=== PATIENT | female | born 1970 | race Caucasian/White ===

== ENCOUNTER 2024-02-03 13:47 | Outpatient (REF) | payer BC, SELFPAY ==
[2024-02-03 14:00] LABS: MANUAL DIFF FLAG NO
[2024-02-03 15:16] LABS: Basophils Percent Auto 0.5 % (0-2); Eosinophils Absolute Auto 0.5 X10*3/uL (0.0-0.4); Eosinophils Percent Auto 6.1 % (0-4); Hematocrit 41.9 % (37.0-47.0); Hemoglobin 14.2 g/dl (12.0-16.0); Imm Gran Abs Auto 0.02 X10*3/uL (0.00-0.03); Imm Gran Pct Auto 0.3 % (0.0-0.4); Lymphocytes Absolute Auto 1.7 X10*3/uL (1.2-4.9); Lymphocytes Percent Auto 22.9 % (20-40); Mean Corpuscular HGB Conc 33.9 g/dl (31.0-35.0); Mean Corpuscular Hemoglobin 29.9 pg (27.0-33.0); Mean Corpuscular Volume 88.2 fL (80.0-98.0); Mean Platelet Volume 10.9 fL (9.4-12.3); Monocytes Absolute Auto 0.4 X10*3/uL (0.1-1.2); Monocytes Percent Auto 5.4 % (2-11); Neutrophils Absolute Auto 4.8 x10*3/uL (2.0-8.3); Neutrophils Percent Auto 64.8 % (45-73); Platelet Count 240 X10*3/uL (160-400); Red Blood Count 4.75 X10*6/uL (4.20-5.50); Red Cell Distribution Width 12.4 % (11.0-16.0); White Blood Count 7.4 X10*3/uL (4.8-10.8)
[2024-02-03 15:57] LABS: Alanine Aminotransferase 10 U/L (0-31); Albumin Level 4.3 g/dL (3.5-5.0); Alkaline Phosphatase 64 U/L (39-117); Anion Gap 11 (12-20); Aspartate Amino Transferase 13 U/L (5-31); Bilirubin Total 0.7 mg/dL (0.0-1.0); Blood Urea Nitrogen 11 mg/dL (9-16); Calcium 9.2 mg/dL (8.4-10.2); Carbon Dioxide 26 mmol/L (22-29); Chloride 108 mmol/L (96-108); Estimated Glomerular Filt Rate > 60; Glucose Random 113 mg/dL (60-115); Sodium 141 mmol/L (135-145); Total Protein 7.5 g/dL (6.5-8.0)
[2024-02-03 16:14] LABS: Thyroid Stimulating Hormone 1.88 uIU/mL (0.32-4.0)
== END 2024-02-03 13:48 | disposition home or self-care (01) ==
LOC: HO.LAB 13:47
PROVIDERS: PCP Internal Medicine; Visit Provider Internal Medicine
DX: R42 Dizziness and giddiness (principal)
CPT/HCPCS: 36415; 80053; 84443; 85025

== ENCOUNTER 2024-02-23 14:20 | Outpatient (REF) | payer BC, SELFPAY ==
--- NOTE | ~2024-02-23 | US_ITS ---
EXAMINATION: US EXTRACRANIAL CAROTID DUPLEX, RIGHT CLINICAL INFORMATION: Right carotid bruit, dizziness COMPARISON: None available. TECHNIQUE: Real-time ultrasound and Doppler techniques (integrating B-mode 2-D vascular images, Doppler spectral analysis and color-flow Doppler imaging) were utilized to interrogate the extracranial carotid arteries, the vertebral arteries and proximal subclavian arteries, right only. The degree of stenosis is determined by criteria similar to NASCET. FINDINGS: 1. There is no significant atherosclerotic plaque seen in the bifurcation/proximal ICA region. 2. The common carotid artery PSV proximally is 135 cm/s and distally 114 cm/s. 3. The proximal internal carotid artery velocities are 96.4 cm/s systolic and 25.9 cm/s diastolic. 4. The proximal external carotid artery PSV is 142 cm/s. 5. The vertebral artery shows antegrade flow. 6. The subclavian artery waveforms are normal. US/US carotid duplex RT IMPRESSION: 1. Normal right internal carotid artery without atherosclerotic plaque or hemodynamically significant stenosis. Electronically signed by: Eliezer Barfield MD 02/24/2024 09:24 AM EDT
== END 2024-02-23 14:21 | disposition home or self-care (01) ==
LOC: HO.US 14:20
PROVIDERS: PCP Internal Medicine; Visit Provider Internal Medicine
DX: R09.89 Other specified symptoms and signs involving the circulatory and respiratory systems (principal); R42 Dizziness and giddiness
CPT/HCPCS: 93882

== ENCOUNTER 2024-11-17 13:26 | Outpatient (AMB) | payer BC, SELFPAY ==
--- NOTE | 2024-11-17 13:23 | A.OFFPC_ITS ---
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 She currently lives at home with her and son. She feels safe at home and reports she is happily and retired but is looking for part-time work. She reports she does smoke marijuana, has tried edibles with adverse effect. Denies any other drug use. Rare alcohol use. No cigarette smoking. Situational anxiety-was previously on sertraline but weaned herself from this about 6 months ago. Reports her anxiety is primarily related to work. 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 The issues themselves as well as the ongoing proceedings cause great distress. She reports this has improved as she is now retired from the position. She does have many coping mechanisms including deep breathing exercises and yoga. She had also previously been following with therapist. Obesity-BMI 30.3. Reports that she gained about 30 lb as a result of the above. She has been exercising regularly with weight training 3-4 days per week, biking, yoga, swimming. She is also been following a healthy diet, is gluten free, and has been tracking her food intake. She is currently consuming between 6798-3240 calories on a daily basis. Has not lost any weight. Osteoarthritis of the left knee-follows with [facility] and support. Concerns: None other than those mentioned above Health maintenance: Due for Pap smear Due for mammogram Due for colonoscopy ROS: General: No fevers, malaise, unintentional weight loss HEENT: No blurred vision, diplopia. No sore throat, nasal congestion, rhinorrhea, sinus pain, ear pain. No hearing loss Neck - no adenopathy Cardiovascular: No chest pain, palpitations, or leg edema Respiratory: No shortness of breath, wheezing, cough Breast: No pain, palpable lumps, nipple inversion GI: No dysphagia, odynophagia, globus sensation. No abdominal pain, nausea, vomiting, diarrhea, constipation, melena, hematochezia : No dysuria, hematuria, increased urinary frequency, decreased urinary output. EX CHEF: No abn vaginal bleeding or discharge MSK: No myalgia, back pain. see hpi Neuro: No headaches, weakness, paresthesias Psych: no depression. No AH/VH. No SI/HI. see hpi Skin: No rashes or lesions EXAM: Constitutional - Awake and Alert, No apparent distress Eyes - PERRLA, EOMI. Anicteric Ears - external ears normal, canals clear, TMs intact and pearly linares with good cone of light Nose- septum midline, nares clear, no sinus tenderness Mouth/throat- mucosa moist, tongue and uvula midline, no erythema/edema or tonsillar adenopathy. Neck-trachea midline, thyroid symmetric without palpable nodules, no adenopathy Cardiovascular - S1S2, RRR, No edema Respiratory - Normal lung expansion, Normal respiratory effort, No respiratory distress, CTA bilaterally Gastrointestinal - NT / ND; +BS; No rebound or guarding - No CVA tenderness Extremities - no calf tenderness bilaterally, no swelling Musculoskeletal - Normal inspection, normal ROM Skin - Warm/Dry, no concerning lesions Neurological - Alert & oriented x3, CN II-XII in tact, 5/5 strength BUE and BLE, 1+ patellar reflexes, sensation intact Psychological - Appropriate affect [facility] Medical History (Updated 11/17/24 @ 13:53 by MARCELLE Mcgrath) Osteoarthritis of left knee Situational anxiety Surgical History (Updated 11/17/24 @ 13:55 by MARCELLE Mcgrath) H/O umbilical hernia repair S/P inguinal hernia repair S/P ACL repair S/P arthroscopic knee surgery Family History (Updated 11/17/24 @ 13:51 by MARCELLE Mcgrath) Paternal Grandmother Breast cancer Sister Breast cancer Physical exam (Primary Care) Vital Signs: Last Vital Signs Temp 97.9 F 11/17/24 13:29 Pulse 76 07/02/25 13:29 Resp 16 11/17/24 13:29 BP 130/78 11/17/24 13:29 Pulse Ox 98 11/17/24 13:29 Oxygen Delivery Method Room Air 11/17/24 13:29 BMI result Body Mass Index 30.3 Office Procedures Cerumen Removal From which ear canal was the cerumen removed: bilateral Removal: irrigation and otoscope w/curette Notes: patient tolerated procedure well, no complications and ear canal clear [id number] Wax Removal by Spoon/Curette Coding Level of Care Code New Pt Prev Care 40-64y(77611) Diagnoses Encounter for routine history and physical examination Z00.00 Situational anxiety F41.8 CPT Codes Office Procedure - CPT: 89409-Jtx Wax Removal by Spoon/Curette ([id number]) Assessment & Plan Assessment & Plan (1) Encounter for routine history and physical examination: Code(s): Z00.00 - Encounter for general adult medical examination without abnormal findings Plan: 54-year-old female presenting for annual physical exam found to be in good general state of health. Plan as below (2) Situational anxiety: Code(s): F41.8 - Other specified anxiety disorders Category: Medical Plan: Stable overall. Can continue off of sertraline. Continue with positive coping mechanisms Plan Routine screening labs as ordered below Continue with screening mammograms, Pap smears, colonoscopies- referred Continue following for annual skin exams and use sun protection Annual eye exams and dental exams Wear seat belt in car Recommend regular exercise and healthy diet Orders: Orders Complete Blood Count Auto Diff Today Z00.00 - Encounter for general adult medical examination without abnormal findings Lipid Panel Today Z00.00 - Encounter for general adult medical examination without abnormal findings Vitamin D 25-OH Total Today Z00.00 - Encounter for general adult medical examination without abnormal findings MM tomosynthesis screening BI Today Z12.31 - Encounter for screening mammogram for malignant neoplasm of breast Basic Metabolic Panel Today Z00.00 - Encounter for general adult medical examination without abnormal findings Liver Panel Today Z00.00 - Encounter for general adult medical examination without abnormal findings TSH reflex Free T4 Today Z00.00 - Encounter for general adult medical examination without abnormal findings Referrals Gastroenterology Referral Z00.00 - Encounter for general adult medical examination without abnormal findings, Z12.11 - Encounter for screening for malignant neoplasm of colon
[2024-11-17 13:29] VITALS: BP 130/78; PULSE 76; RESP 16; TEMP 36.6; O2SAT 98; BMI 30.3
--- OUTSIDE RECORDS SUMMARY | 2024-11-17 14:03 | XMS_ITS | Data Portability ---
Author Organization [place] - [facility], [facility] - INPATIENT Address [address] [place] [address] Care Team Providers Care Archives Director Name Role Phone LACY MOFFETT Primary Care Provider Assessment Encounter Date Assessment Date Assessment LastModified by Organization Details LastModified Time 07/16/2019 07/16/2019 PROCEDURE: The patient consented to proceeding with a Monovisc injection after risks, benefits and alternatives were discussed. Under sterile conditions with the use of alcohol and Betadine prep on the superolateral portion of the right knee and ethyl chloride spray on the skin, I applied sterile ultrasound gel and utilized the [employer] to ensure accurate needle placement. Topical anesthesia was achieved by inserting 1 cc of 2% lidocaine into the subcutaneous tissues, followed by aspiration of approximately 1 cc of straw-colored fluid from the knee joint and the placement of Monovisc into the joint without incident. Ultrasound images were scanned into the patient's chart. The injection was completed without complication and a Band-Aid was applied. The patient tolerated the procedure well and was instructed to avoid strenuous activity for the next 24-48 hours and use ice, NSAIDS, or Tylenol for pain as needed. PLAN: The patient was given the usual post injection instructions, including to call the office if there is any increased pain or discomfort. All of the patient's questions were answered. We will see the patient back in 2 months to re-evaluate the knee and to assess response to the injection. Not available 07/28/2019 21:26:41 08/25/2019 08/25/2019 IMPRESSION: She has improved since last visit, which is great news, but she is not pain free. We discussed that the next logical step is for an MRI should the symptoms continue. PLAN: We are going to give it another month for continued conservative management with strengthening, range of motion, and muscle work. She is in agreement with this treatment plan. Again medially she reports no significant pain, where the majority is lateral and posterior knee. She denies any loss of range of motion. Therefore, we will continue down the conservative path and see the patient back in a month for further review. All of the patient s questions were answered. I spent a total of 25 minutes during this real-time virtual clinical interactive encounter. Greater than 70% of the time was devoted towards counseling and coordinating care, including review of records and pertinent laboratory data and studies, discussing diagnostic evaluation and workup and planned therapeutic interventions. This includes counseling regarding the patient s history. [email or web address] Not available 08/27/2019 22:32:35 03/29/2020 03/29/2020 IMPRESSION: The patient is status post NUsurface implant. Overall, she is doing quite well, which we are excited about. She has off and on symptoms of discomfort. I do believe that WERNER injections would be an option for her as they benefited her substantially in the past should there be more bad days than good days, but overall she is doing well. PLAN: I feel no need to intervene with the exception of continued strengthening, weight maintenance, and general knee health. We will see her back for further review. All of the patient's questions were answered. The patient did complete the COVID-19 screening handout and was deemed healthy to move forward with this appointment. This visit is a znem-tp-melp visit during the COVID-19 pandemic Public Health Emergency. Based on my clinical judgment, I felt that this visit could not be provided safely and appropriately via TeleHealth. Based on available information prior to presentation, the patient had a high risk of significant worsening and potential functional impairment affecting ADLs if the visit was not completed today. The patient was seen in the office after following PPE use, Workforce Safety, Patient Safety and Infection Control protocols for all services provided today in accordance with [facility] and CDC guidelines. There was additional practice expense incurred due to the Public Health Emergency. This additional expense includes but is not limited to: Additional clinical staff and medical technical publications manager time for pre-screening Time spent reviewing COVID social distancing guidelines, precautions, instructions, and signage Patient symptom checking upon arrival Application, removal, and purchasing of additional PPE Additional cleaning of exam room, equipment, supplies, as well as cleaning supplies for that purpose. Not available 04/02/2020 17:15:36 05/23/2022 05/23/2022 We reviewed the surgery in exquisite detail including the surgical videos. She did mention today that she has some numbness into the toes she states that this has been since the implant was unstable. Not from the surgery. On physical exam she demonstrates 5 out of 5 strength of FHL EHL dorsiflexion plantarflexion and just simply hyposensation to the to the toes. This is something that I do feel will continue to improve and may indeed be from pressure from swelling from the meniscus injury or the implant itself I do feel this will improve with time and physical therapy. She will initiate skilled physical therapy we will provide her a prescription for physical therapy. The diagnosis is postop removal of meniscus implant and the treatment plan is progressive range of motion strengthening soft tissue work and a gait work. We will see her back for further review in 6 weeks. We will she would like to proceed with a revision of the implant so we will institute this program for compassionate use. And seek approval certainly the ACL will be addressed at the surgery. And we will see patient back with Dr. Hair in follow-up in 4 to 6 weeks [email or web address] Not available 05/24/2022 11:43:14 Plan of Treatment Reminders Order Date Submit Date Provider Last Modified By Organization Details Last Modified Time Details Appointments None recorded. Lab None recorded. Referral physical therapist referral - dx: s/p left knee postop removal of meniscus implant-pr ogressive range of motion strengthen ing soft tissue work and a gait work Total # of Visits: prn 2022 023 [email or web address] Not available 3 12:00:11 Procedures None recorded. Surgeries orthopaedi c surgery (SURG) 2022 023 [email or web address] [facility], [address] [place] [address], [address], 3 16:26:17 Imaging None recorded. Medication Orders Monovisc 88 mg/4 mL intra-awa cular syringe 2019 020 [email or web address] [id number], [address] [place], [address], 11:17:04 Patient TargetsNo targets recorded. Patient InstructionsNo instructions recorded. Reason for Referral Physical Therapist Referral for Tear of medial meniscus of knee dx: s/p left knee postop removal of meniscus implant-progressive range of motion strengthening soft tissue work and a gait workTotal # of Visits: prn Referring Physician: Wellington Reis Physician Reserve Officer, Encounter Date: 05/23/2022 Problems Name Problem SNOMED Code Status Onset Date Resolution Date Notes Provider Name and Address Organization Details Recorded Time Knee pain Active Ceci ambriz [facility] 23:48:11 Tear of medial meniscus of knee 257523410 Active Ceci ambriz [facility] 18:49:04 Patellofemo ral syndrome of left knee 5228468555052 107 Active Ceci ambriz [facility] 18:49:04 Acute meniscal tear, lateral 620031398 Active Ceci ambriz [facility] 18:49:04 Tear of lateral meniscus of knee 838369866 Active MARCELLE LORA [address] [place] [address], [phone] [place] [address] [facility] 10:41:16 Problem Notes None recorded. Procedures Surgical History Date Name Laterality Status Provider Name and Address Organization Details Recorded Time 05/09/20 22 Orthopaedic Surgery completed Fran Elliott [facility] 05/23/2022 10:44:52 07/09/19 17 Orthopaedic Surgery completed Mariaa Mortensen [facility] 07/23/2016 13:25:25 01/24/20 16 Orthopaedic Surgery completed Tiffany Puente [facility] 01/31/2016 11:01:50 07/18/19 16 Orthopaedic Surgery completed Tiffany Puente [facility] 11/10/2015 10:35:10 05/19/19 10 Orthopaedic Surgery completed Mariaa Mortensen [facility] 05/26/2015 13:19:28 05/19/19 01 Orthopaedic Surgery completed Mariaa Mortensen MA [facility] 05/26/2015 13:19:28 05/19/18 93 Orthopaedic Surgery completed Mariaa Mortensen MA [facility] 05/26/2015 13:19:28 Imaging Results None recorded. Procedure Notes None recorded. Medical Equipment None Reported. Allergies No known drug allergies Medications Name Sig Start Date Stop Date Status Note LastModified by Organization Details LastModified Time celecoxib 200 mg capsule 07/16 completed Not Available Not Available Not Available cyclobenzap rine 10 mg tablet active Not Available Not Available Not Available amoxicillin 500 mg capsule 07/16 completed Not Available Not Available Not Available medroxyprog esterone 10 mg tablet active Not Available Not Available No t Available Depo-Medrol 40 mg/mL suspension for injection Take 2 mL by injection route. 08/21 completed Not Available Not Available Not Available azithromyci n 250 mg tablet 07/16 completed Not Available Not Available Not Available clarithromy larissa 500 mg tablet 07/16 completed Not Available Not Available Not Available sertraline 100 mg tablet TAKE 1/2 TABLET BY MOUTH ONCE A DAY active Not Available Not Available No t Available acetaminoph en 300 mg-codeine 30 mg tablet active Not Available Not Available Not Available morphine ER 30 mg tablet,exte nded release active Not Available Not Available Not Available oxycodone-a cetaminophe n 5 mg-325 mg tablet 05/10 completed Not Available Not Available Not Available sulfacetami de sodium 10 % eye drops INSTILL 2 DROPS INTO AFFECTED EYE FOUR TIMES A DAY active Not Available Not Available No t Available omeprazole 20 mg capsule,del ayed release 07/16 completed Not Available Not Available Not Available Iophen C-NR 10 mg-100 mg/5 mL oral liquid active Not Available Not Available Not Available ibuprofen 600 mg tablet active Not Available Not Available Not Available methylpredn isolone 4 mg tablets in a dose pack TAKE 6 TABLETS ON DAY 1 DIRECTED ON PACKAGE AND DECREASE BY 1 TAB EACH DAY FOR A TOTAL OF 6 DAYS active Not Available Not Available No t Available ketoconazol e 2 % topical cream active Not Available Not Available Not Available indomethaci n ER 75 mg capsule,ext ended release TAKE ONE CAPSULE BY MOUTH EVERY DAY FOR 6 WEEKS THEN NEEDED FOR PAIN 07/16 completed Not Available Not Available Not Available sertraline 50 mg tablet TAKE 1 TABLET BY MOUTH EVERY DAY IN THE MORNING active Not Available Not Available No t Available amoxicillin 875 mg-potassiu m clavulanate 125 mg tablet TAKE 1 TABLET BY MOUTH EVERY 12 HOURS FOR 5 DAYS 07/16 completed Not Available Not Available Not Available oxycodone 5 mg tablet TAKE 1-2 TABLETS BY MOUTH EVERY 4-6 HOURS NEEDED 05/23 completed Not Available Not Available Not Available Sprintec (28) 0.25 mg-0.035 mg tablet TAKE ONE TABLET BY MOUTH TWICE A DAY WITH FOOD FOR 7 DAYS, THEN ONE PER DAY THEREAFTE R. 07/16 completed Not Available Not Available Not Available doxycycline hyclate 100 mg tablet,margret yed release active Not Available Not Available Not Available Monovisc 88 mg/4 mL intra-artic ular syringe Take 4 mL by intraarti cular route. 07/31 completed LT knee Not Available Not Available Not Available Vitals Date Recorded Body height Provider Name an d Address Organization Details Last Updated DateTime 07/16/2019 172.72 cm Tiffany Griggs [facility] 07/16/2019 11:07:28 Date Recorded Body height Provider Name an d Address Organization Details Last Updated DateTime 08/25/2019 172.72 cm MARCELLE LORA [address] [place] [address], [phone] [place] [address] [facility] 08/25/2019 15:03:13 Date Recorded Body height Body mass index (BMI) Body weight Provider Name and Address Organization Details Last Updated DateTime 03/29/2020 172.72 cm 31 kg/m2 08440.84 g Nohemi Rodriguez [facility] 03/29/2020 16:09:55 Social History Question Answer Notes LastModified by Organizat ion Details LastModified Time Tobacco Smoking Status Never Smoker Mariaa ambriz [facility] 05/26/2015 13:19:28 Auto Related Injury? No [email or web address] Information not available 05/26/2015 Have You Had Cortisone? Yes L Knee 04/2015 [email or web address] Information not available 11/10/2015 What Was The Date Of Your Most Recent Tobacco Screening? 08/07/2017 Information not available 12/10/2018 Work Related Injury? No [email or web address] Information not available 05/26/2015 Sex: Unknown Functional Status Question Answer Note LastModified by Organizat ion Details LastModified Time What is your level of alcohol consumption? Occasional Information not available 07/07/2019 Do you or have you ever used smokeless tobacco? 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 Never used electronic cigarettes Information not available 07/07/2019 What is your exercise level? Moderate [email or web address] Information not available 05/26/2015 Mental Status None recorded. Family History Relationship Description Onset Age of this Age Resolved Age Notes LastModified by Organization Details LastModified Time Father No current problems or disability Not available 14:08:36 Mother No current problems or disability Not available 14:08:36 Medical History Condition Response Blood Clots / Phlebitis N HIV or AIDS N Heart Problems N High Blood Pressure N Depression or Anxiety N Irregular Heartbeat N MRSA N Emphysema / Chronic Bronchitis N Any Other Significant Medical Issues N Reaction to General/Local Anesthesia N Hepatitis / Jaundice N Weight Gain / Loss N Kidney / Bladder Infections N Diabetes N Bleeding Disorder N Hearing Loss N Angina, Heart Failure or Attack N Night Sweats N Seizures / Epilepsy N Osteoarthritis / Rheumatoid arthritis / Other N Cancer N Stroke N Chemical Dependency / Alcoholism N Ulcer / Stomach Bleeding / Indigestion N Visual Loss or Glaucoma N Psoriasis / Skin Rash N Thyroid Disorder N Heart Disease N Asthma / Shortness of Breath / Sleep Hot Frame Tender ea (please specify) N Pulmonary Embolism N Gynecological HistoryNo gynecological history recorded. Obstetrics History GPAL:G 0 P 0 0 0 0 Past Encounters Encounter ID Performer Location Encounter Start Date Encounter Closed Date Diagnosis/Indication Diagnosis SNOMED-CT Code Diagnosis ICD10 Code Diagnosis Note [id number] MARCELLE LORA [facility] Office [address] [address] 05/26/2015 12:43:01 05/26/2015 15:34:02 Tear of medial meniscus of knee 204734841 S83.222A [id number] KELLY HAIR MD [facility] Office [address] [place] [address] 07/07/2015 12:47:42 07/10/2015 08:43:16 Tear of medial meniscus of knee 959708386 S83.222A [id number] MARCELLE LORA [facility] Office [address] [place] [address] 08/02/2015 13:46:48 08/02/2015 15:06:28 Tear of medial meniscus of knee [id number] S83.222D [id number] KELLY HAIR MD [facility] Office [address] [place] [address] 1 09/06/2015 11:29:57 09/06/2015 12:40:48 Tear of medial meniscus of knee 007964236 S83.232D [id number] KELLY HAIR MD [address] [address] 11/10/2015 09:55:02 11/10/2015 11:16:29 Tear of medial meniscus of knee 803639699 S83.232D [id number] MARCELLE LORA [facility] [address] [address] 12/14/2015 08:19:27 12/14/2015 08:41:15 Knee pain 07003960 M25.562 [id number] KELLY HAIR MD [address] [address] 01/31/2016 10:04:04 01/31/2016 11:48:05 Tear of medial meniscus of knee 678575943 S83.222D [id number] KELLY HAIR MD [address] [address] 03/01/2016 12:01:58 03/01/2016 14:41:41 Patellofemoral syndrome of left knee 4084593161 384440 M22.2X2 Acute meni scal tear, lateral 399085019 S83.262A Tear of me dial meniscus of knee 340664781 S83.222D [id number] KELLY HAIR MD [facility] Office [address] [place] [address] 1 05/10/2016 09:40:06 05/10/2016 12:05:06 Knee pain 97551141 M25.562 Tear of la teral meniscus of knee 668920737 S83.262A [id number] MARCELLE LORA [facility] Office [address] [place] [address] Tear of medial meniscus of knee 770232149 S83.222D Tear of la teral meniscus of knee 950298062 S83.262D [id number] KELLY HAIR MD [facility] Office [address] [place] [address] 1 08/21/2016 11:39:43 08/21/2016 13:07:32 Tear of lateral meniscus of knee [id number] S83.262D [id number] MARCELLE LORA [address] [address] 08/07/2017 12:40:45 08/07/2017 13:33:52 Tear of lateral meniscus of knee 429935249 S83.262D [id number] MARCELLE LORA [facility] Office [address] [place] [address] 1 07/07/2019 12:46:29 07/07/2019 15:22:57 Tear of lateral meniscus of knee 828814014 S83.262D [id number] MARCELLE LORA [facility] [address] [place] [address] 07/16/2019 11:04:40 07/16/2019 11:38:48 Tear of lateral meniscus of knee 614531101 S83.262D [id number] MARCELLE LORA [address] [address] 08/25/2019 01:12:27 08/26/2019 18:35:45 Tear of medial meniscus of knee 023013911 S83.222D [id number] MARCELLE LORA [facility] Office [address] [place] [address] 03/29/2020 14:46:11 03/29/2020 16:33:50 Tear of medial meniscus of knee 282250098 S83.222D [id number] MARCELLE LORA [facility] Office [address] [place] [address] 1 05/23/2022 10:39:32 05/24/2022 11:35:52 Tear of medial meniscus of knee 562414870 S83.222D [id number] KELLY HAIR MD [address] [address] 07/31/2022 10:33:59 07/31/2022 12:23:03 Tear of medial meniscus of knee 575133927 S83.222D Health Concerns Section Related Observation LastModified by Organization Detai ls LastModified Time None Recorded Concern Status LastModified by Organization Details LastModified Time None Recorded Advance Directives Directive None Recorded Payers Insurance Date Sequence Insurance Name Policy Number Policy Hernández Covered Member ID Hernández Member ID Guarantor Name 07/28/2016 [facility] Coco Miguelangel Coco Miguelangel 10/02/2022 1 *SELF PAY* Re adelfo Miguelangel 10/22/2022 2 [place] [facility] Coco Miguelangel [id number] Coco Miguelangel 05/03/2022 1 [place] [facility] [id number] Rupert Cline Miguelangel [id number] Coco Miguelangel 10/01/2022 1 [place] [facility] [id number] Coco Miguelangel [id number] Coco Miguelangel Notes Date Note Type Note Provider Name and Address Organization Details Recorded Time 07/16/2019 text/html HX: The patient is a 49-year-old female, who presents today for evaluation of the left knee and a Monovisc injection with cortisone. The patient s chief complaint is soreness located at the lateral portion of the knee. She has no pain medially. She is part of the NUsuace study. She has discomfort, stiffness and soreness. She denies locking or buckling. She is status post arthroscopy on the lateral side for a meniscectomy. She carries the diagnosis of some early degenerative changes lateral. MARCELLE LORA [address] [place] [address], [phone], [facility] 07/30/2019 10:02:37 08/25/2019 text/html COVID-19 STATEMENT: This visit is a real-time interactive TeleHealth visit conducted via telephone on 08/25/19 due to the National Emergency and COVID-19 Pandemic restrictions on movement. Ms. Means was identified by name and date of , and consented to the visit conducted as a TeleHealth visit. Ms. Means was at her residence. PMH: The patient s recent medical history and prior records were reviewed. HX: The patient presents in today for evaluation of her left knee. The patient states that the knee has improved since last visit, which is wonderful news. She states that she has about 70% less discomfort than at last visit. MARCELLE LORA [address] [place] [address], [phone], [facility] 08/30/2019 11:22:02 03/29/2020 text/html HX: The patient presents today for further evaluation of her left knee. She is status post NUsurface implant, as well as lateral meniscectomy. The patient states that the knee waxes and wanes in terms of slight discomfort. It is lateral; she has no pain medially, which is wonderful news. MARCELLE LORA [address] [place] [address], [phone], [facility] 04/03/2020 06:23:46 05/23/2022 text/html Patient presents today for evaluation of the left knee. Patient's recovering well status post the arthroscopy and removal of the implant. Her chief complaint is general discomfort located in the posterior portion of the knee. She is walking with the crutches and is yet to start physical therapy. MARCELLE LORA [address] [place] [address], [phone], [facility] 05/28/2022 05:57:24 07/31/2022 text/html Patient presents in today for evaluation of the left knee patient is doing well making progress pain is decreased since removal of the implant. On physical exam there is a minor joint effusion range of motion is 0 to 110 degrees the calves are supple the extremity is neurovascular intact and skin is intact throughout as well. The incision is well-healed is a negative Homans' sign. We reviewed x-rays which I demonstrate the medial compartment osteoarthritis in the knee we educated patient in regards to this this includes an AP lateral PA flexion sunrise view and alignment views we discussed that ultimately options include a total joint arthroplasty versus a unicompartmental arthroplasty with an ACL reconstruction our hope would be to avoid the this procedure and simply work on strengthening and attempt to manage this conservatively she is in agreement with this treatment plan we will see patient back for further review within 3 months time. KELLY HAIR MD [address] [place] [address], [phone], [facility] 08/07/2022 08:57:19 OBGyn Episode No OBEpisode recorded.
== END 2024-11-17 14:24 | disposition home or self-care (01) ==
LOC: HO.HMCHD 13:26
PROVIDERS: PCP Physician Assistant; Visit Provider Physician Assistant
DX: Z00.00 Encounter for general adult medical examination without abnormal findings (principal); F41.8 Other specified anxiety disorders; H61.23 Impacted cerumen, bilateral

== ENCOUNTER → 2024-11-17 13:26 | Outpatient (BNVA) | payer BC, SELFPAY | PROVIDERS: PCP Physician Assistant; Visit Provider Physician Assistant | DX: Z00.00 Encounter for general adult medical examination without abnormal findings (principal); F41.8 Other specified anxiety disorders; M17.9 Osteoarthritis of knee, unspecified; E66.9 Obesity, unspecified; Z68.30 Body mass index [BMI] 30.0-30.9, adult | CPT/HCPCS: 69210 ==

== ENCOUNTER 2025-03-30 10:07 | Outpatient (AMB) | payer BC, SELFPAY ==
--- NOTE | 2025-03-30 10:20 | A.OFFVIS_ITS ---
Vital Signs 03/30/25 10:27 Height 5 ft 8 in Weight 200 lb BMI 30.4 BP 140/76 H Blood Pressure Location Rt brachial Position Sitting Pulse 64 Pulse Source Pulse Oximeter Pulse Oximetry (%) 96 Oxygen Delivery Method Room Air Intake Visit Reasons: colo screen Intake Note: New pt for initial colo screening. CC; C.O. intermittent LUQ pain x2-3 years. Pt states that she has a hx of a spleen injury as well as H pylori infx which was reportedly treated by PCP per pt. Pt also reports having chronic nausea. No pertinent surgical or FMHx. Predictive Maintenance Specialist Required: No Accompanied by: Self / Same As Patient Allergies No Known Allergies Allergy (Verified 03/30/25 10:21) HPI HPI colo screen: Details: 54-year-old female here for preprocedural meeting to discuss a screening colonoscopy. She is referred by Nohemi Santos. PMX Obesity-BMI 30 Anxiety Osteoarthritis of the knees * SURGICAL HISTORY Umbilical hernia repair Inguinal hernia repair bilateral and 2 repeat ACL repair Arthroscopic knee surgery * ALLERGIES: NKDA * Prezacor LABS: Neecsd labs TODAY'S VISIT First colonoscopy: Yes Bowel or upper GI problems: nervous stomach and LUQ pain like a know, frequent and intermittent. Worse with infections, hx fx ribs. Worse with over eating. Pain tends to start in the flank and wraparound all the way to the thoracic spine. This has been since at least 2018. Prior CAT scan via Dr. Cline found in the archive did not seem to indicate any abnormality such as she is describing with ?rib up into the chest. ? She is worried about her spleen. Cardiac or respiratory problems: No Problems with anesthesia or sedation:she has had N/V with general anesthesia No ID problems. No Family history: No: We will start with some x-rays of her thoracic spine and ribs along with a CAT scan of the abdomen. If this does not produce any pathology then we will consider a trial of dicyclomine. Return office visit in 3 months [facility] Medical History Osteoarthritis of left knee Situational anxiety Surgical History H/O umbilical hernia repair S/P inguinal hernia repair S/P ACL repair S/P arthroscopic knee surgery Family History Paternal Grandmother Breast cancer Sister Breast cancer Review of Systems Const Denies fatigue, Denies fever(s), Denies night sweats, Denies poor appetite and Denies weight loss ENT Reports Normal hearing present, Denies dental pain, Denies dysphagia, Denies hearing loss, Denies mouth pain, Denies odynophagia, Denies throat swelling, Denies tongue swelling and Reports other (Dentition adequate) Card Reports no additional complaints Resp Reports no additional complaints GI Details: Reports abdominal pain, Denies melena, Denies bloating, Denies hematochezia, Reports constipation, Denies GI cramping, Denies dysphagia, Denies excessive flatus, Denies early satiety, Denies heartburn, Denies diarrhea, Denies nausea, Denies odynophagia, Denies vomiting and Denies hematemesis Reports flank pain Musc Reports back pain Skin/Breast Denies pruritus, Denies lesions, Denies rash and Denies jaundice Neuro Reports Normal hearing present and Denies Abnormal speech present Endo Denies fatigue Aller/Immun Denies throat swelling and Denies tongue swelling Physical Exam Vital Signs: Last Vital Signs Pulse 64 03/30/25 10:27 BP 140/76 H 03/30/25 10:27 Pulse Ox 96 03/30/25 10:27 Oxygen Delivery Method Room Air 03/30/25 10:27 BMI result Body Mass Index 30.4 Const General: cooperative, no acute distress, well developed and well groomed Nutritional Appearance: average body habitus and well nourished Orientation/consciousness: oriented to person, oriented to place and oriented to time Limitations: No language barrier HEENT Head: Yes normocephalic and Yes atraumatic Eyes General: appearance normal, both eyes and all related structures Pupils: Equal, round and reactive pupils present Neck Neck: Yes normal visual inspection and Yes no lymphadenopathy Thyroid: Thyroid normal Chest Chest palpation & inspection: normal inspection of the chest, crepitus (Mild question popping rib right lower) and tenderness (Lower lateral ribcage) Resp Effort & Inspection: normal respiratory effort and able to speak in complete sentences Auscultation: clear to auscultation bilaterally Cardio Rate: regular rate Rhythm: regular rhythm Heart sounds: Normal, physiologic split S2 sound present Peripheral pulses: radial pulses present and posterior tibial pulses present GI Inspection: No distended and No Abdominal panniculus present Palpation (GI): Soft to palpation, nontender, no guarding, not rigid and No hepatosplenomegaly present Percussion: Yes normal to percussion Auscultation: normal bowel sounds Rectal Exam - Female: deferred Back/Spine/Pelvis Other: Increased thoracic paraspinal tone, no tenderness Thoracic/Lumbar Spine: thoracic and lumbar spine normal to inspection Skin General skin exam: no rashes or lesions noted, turgor normal, skin not dry, no jaundice, No spider nevi and no striae Rashes: no rashes Nails: normal Neuro General: oriented to person, oriented to place and oriented to time Cranial nerves: Yes Equal, round and reactive pupils present and Yes Normal hearing present Speech: No Abnormal speech present Extrem General: Yes normal to inspection, No clubbing, No cyanosis and No edema Psych Appearance: grossly normal and well kempt Mental Status: mental status grossly normal Speech and movement: Normal speech and movement present Affect: normal affect Attitude: cooperative Thought process: Normal thought process present and not confabulating Thought content: Normal thought content present Insight: Good insight present (Psych) Judgement: Good judgement present (Psych) Assessment & Plan Assessment & Plan (1) Pre-op examination: Code(s): Z01.818 - Encounter for other preprocedural examination Category: Medical (2) LUQ abdominal pain: Code(s): R10.12 - Left upper quadrant pain Category: Medical Plan First colonoscopy: Yes Bowel or upper GI problems: nervous stomach and LUQ pain like a know, frequent and intermittent. Worse with infections, hx fx ribs. Worse with over eating. Pain tends to start in the flank and wraparound all the way to the thoracic spine. This has been since at least 2018. Prior CAT scan via Dr. Cline found in the archive did not seem to indicate any abnormality such as she is describing with ?rib up into the chest. ? She is worried about her spleen. She does struggle with the occasional constipation that she tries to address via diet. Cardiac or respiratory problems: No Problems with anesthesia or sedation:she has had N/V with general anesthesia No ID problems. No Family history: No: We will start with some x-rays of her thoracic spine and ribs along with a CAT scan of the abdomen. If this does not produce any pathology then we will consider a trial of dicyclomine. Return office visit in 3 months Orders: Orders Complete Blood Count Auto Diff Today Z01.818 - Encounter for other preprocedural examination XR Ribs Yasir 2V Today R10.12 - Left upper quadrant pain Comprehensive Met. Panel Today Z01.818 - Encounter for other preprocedural examination CT abdomen wo/w IV con Today R10.12 - Left upper quadrant pain XR thoracic spine 2V Today R10.12 - Left upper quadrant pain Referrals GI Procedure Notification Z01.818 - Encounter for other preprocedural examination Medications: New peg 3350-electrolytes [id number] -5.86 gram (Golytely) until fecal effluent is clear; do not exceed a total volume of 2,000 mL 240 mL PO Q10M 4,000 mL 0RF 1 day Z12.11 - Encounter for screening for malignant neoplasm of colon bisacodyl (Dulcolax (bisacodyl)) 10 mg (2 x 5 mg) PO BEDTIME 4 tabs 0RF 2 days Coding Level of Care Code New Pt Level 3 (82670) Diagnoses Pre-op examination Z01.818 LUQ abdominal pain R10.12
[2025-03-30 10:27] VITALS: BP 140/76; PULSE 64; O2SAT 96; BMI 30.4
== END 2025-03-30 10:52 | disposition home or self-care (01) ==
LOC: HO.HGI 10:08
PROVIDERS: PCP Physician Assistant; Visit Provider Nurse Practitioner
DX: Z01.818 Encounter for other preprocedural examination (principal); Z12.11 Encounter for screening for malignant neoplasm of colon; R10.12 Left upper quadrant pain
CPT/HCPCS: S0285